=== PATIENT | male | born 2000 | race Hispanic/Latino ===

== ENCOUNTER 2024-02-22 10:21 | Emergency (ER) | payer BC, OTHER ==
[~2024-02-22] VITALS: Ht 182.9 cm; Wt 113.4 kg
[2024-02-22 10:33] VITALS: PULSE 88; RESP 16; TEMP 98.9
[2024-02-22] MEDS: IBUPROFEN 600 MG TAB PO STA (11:35)
[2024-02-22] MEDS: TETANUS/DIPHTHERIA TOX ADULT 0.5 ML SYR IM ONE (11:37)
[2024-02-22 13:21] VITALS: BP 157/90; PULSE 73; RESP 16; O2SAT 100
== END 2024-02-22 13:00 | disposition home or self-care (01) ==
LOC: ER 10:35
DX: M25.561 Pain in right knee (principal); S80.11XA Contusion of right lower leg, initial encounter; M25.461 Effusion, right knee; W01.0XXA Fall on same level from slipping, tripping and stumbling without subsequent striking against object, initial encounter; Y93.01 Activity, walking, marching and hiking; Y92.89 Other specified places as the place of occurrence of the external cause; I10 Essential (primary) hypertension; F17.210 Nicotine dependence, cigarettes, uncomplicated
CPT/HCPCS: 90471; 90714; 99283